=== PATIENT | male | born 1980 | race Caucasian/White ===

== ENCOUNTER 2017-04-04 17:02 | Emergency (ER) | payer MEDICAID ==
[~2017-04-04] VITALS: Ht 172.7 cm; Wt 85.7 kg
[2017-04-04 17:28] VITALS: BP 146/97
--- NOTE | 2017-04-04 17:46 | NUR ---
PT AMBULATED TO OVERFLOW 3.
--- NOTE | 2017-04-04 17:54 | NUR ---
PATIENT PRESENTS TO ED WITH WORKING AT HOME AND GOT SPLINTER OF WOOD STUCK IN LEFT WRIST; HX NONE; DENIES N/V/D; SKIN IS PINK/WARM/DRY; AAOX4 WITH EVEN AND STEADY GAIT; LUNGS CLEAR BL; HR EVEN AND REGULAR; PT DENIES ANY FEVER, CP, SOB, OR COUGH AT THIS TIME; PATIENT STATES PAIN OF 3/10 AT THIS TIME; VSS; PATIENT POSITIONED FOR COMFORT; ER MD MADE AWARE OF PT STATUS.
[2017-04-04] MEDS ORDERED: LIDOCAINE 1% 500 MG/50 ML VIAL INJ SCH (17:55)
[2017-04-04] MEDS ORDERED: LIDOCAINE MPF 1% 50 MG/5 ML VIAL ONE (18:14)
[2017-04-04] MEDS ORDERED: NEOMYCIN/POLYMYXIN/BACITRACIN 0.9 GM/1 PKT TP ONE (19:03)
[2017-04-04 19:14] VITALS: BP 132/87
--- NOTE | 2017-04-04 19:14 | NUR ---
Patient discharged with v/s stable. Written and verbal after care instructions given and explained. Patient verbalized understanding. Ambulatory with steady gait. All questions addressed prior to discharge. Advised to follow up with PMD.
== END 2017-04-04 19:14 | disposition home or self-care (01) ==
LOC: MED 17:02
DX: S60.551A Superficial foreign body of right hand, initial encounter (principal); F17.200 Nicotine dependence, unspecified, uncomplicated; Z71.6 Tobacco abuse counseling; W45.8XXA Other foreign body or object entering through skin, initial encounter; Y93.89 Activity, other specified; Y92.89 Other specified places as the place of occurrence of the external cause; Y99.8 Other external cause status
CPT/HCPCS: 99284; J2001